=== PATIENT | female | born 1995 | race Caucasian/White ===

== ENCOUNTER 2022-01-16 15:18 | Outpatient (CLI) | payer BC | END 2022-01-16 19:29 | disposition home or self-care (01) | LOC: SLB 15:18 | PROVIDERS: ATTEND Obstetrics & Gynecology | DX: Z29.13 Encounter for prophylactic Rho(D) immune globulin (principal) | CPT/HCPCS: 36415; 86886; 86900; 86901 ==

== ENCOUNTER 2022-01-17 12:00 | Observation (INO) | payer BC ==
[~2022-01-17] VITALS: Ht 157.5 cm; Wt 72.6 kg
== END 2022-01-17 18:50 | disposition home or self-care (01) ==
LOC: SPU 12:00
PROVIDERS: ADMIT Obstetrics & Gynecology; ATTEND Obstetrics & Gynecology
DX: Z34.83 Encounter for supervision of other normal pregnancy, third trimester (principal); Z3A.28 28 weeks gestation of pregnancy
CPT/HCPCS: 36415; 59025; 81002; 96372; G0378; G0379; J2790